=== PATIENT | male | born 1975 | race Caucasian/White ===

== ENCOUNTER 2019-03-10 13:52 | Emergency (ER) | payer BC ==
[~2019-03-10] VITALS: Wt 74.8 kg
[~2019-03-10 13:52] MED LIST: DAYPRO600 M1 PO; VICODIN 500 MG-1 TAB PO; VICODIN ES 7501 TAB PO
[2019-03-10] MEDS ORDERED: ANAPROX DS550 MG PO (14:23)
== END 2019-03-10 14:45 | disposition home or self-care (01) ==
LOC: ED 13:52
DX: M25.562 Pain in left knee (principal)

== ENCOUNTER 2020-07-01 21:54 | Emergency (ER) | payer OTHER ==
[~2020-07-01] VITALS: Wt 77.1 kg
[~2020-07-01 21:54] MED LIST changes: +ANAPROX DS550 MG PO
[2020-07-02] MEDS ORDERED: Motrin,Rufen800 MG PO (00:42)
== END 2020-07-02 00:49 | disposition home or self-care (01) ==
LOC: ED 21:54
DX: M79.672 Pain in left foot (principal)

== ENCOUNTER 2021-04-08 18:00 | Emergency (ER) | payer SELFPAY ==
[~2021-04-08] VITALS: Wt 77.1 kg
[~2021-04-08 18:00] MED LIST changes: +Motrin,Rufen800 MG PO
[2021-04-08] MEDS ORDERED: CEPHALEXIN500 M1 PO (21:02)
== END 2021-04-08 21:08 | disposition home or self-care (01) ==
LOC: ED 18:00
DX: S61.230A Puncture wound without foreign body of right index finger without damage to nail, initial encounter (principal); W18.39XA Other fall on same level, initial encounter; Y93.89 Activity, other specified; Y92.89 Other specified places as the place of occurrence of the external cause; Y99.8 Other external cause status

== ENCOUNTER 2023-03-25 12:48 | Emergency (ER) | payer SELFPAY ==
[~2023-03-25] VITALS: Ht 182.8 cm; Wt 74.8 kg
[~2023-03-25 12:48] MED LIST changes: +CEPHALEXIN500 M1 PO
[2023-03-25 16:14] LABS: BASO # 0.1 10*3/uL (0.0-0.1); BASO % 1.2 % (0.0-1.0); HEMATOCRIT 45.8 % (42.0-52.0); LYMPH % 30.7 % (27.0-41.0); MEAN CELL VOLUME 90.7 fl (80.0-94.0); MEAN CORPUSCULAR HGB 29.3 pg (27.0-31.0); MEAN CORPUSCULAR HGB CONC 32.3 g/dl (33.0-37.0); MEAN PLATELET VOLUME 9.3 fl (9.6-12.3); MONO # 0.7 10*3/uL (0.1-1.0); MONO % 10.2 % (3.0-9.0); NEUT # 3.7 10*3/uL (2.3-7.9); NEUT % 57.6 % (47.0-73.0); PLATELET COUNT AUTOMATED 316 10*3/uL (130-400); RED BLOOD COUNT 5.05 10*6/uL (4.50-5.90); RED CELL DISTRI WIDTH 12.4 % (0-14.5); WHITE BLOOD COUNT 6.5 10*3/uL (4.8-10.8)
[2023-03-25 16:36] LABS: ALKALINE PHOSPHATASE 93 U/L (46-116); BUN 10 mg/dl (9-23); CHLORIDE 104 mmol/L (98-107); POTASSIUM 4.7 mmol/L (3.4-5.1); SGPT/ALT 16 U/L (10-49)
== END 2023-03-25 18:45 | disposition home or self-care (01) ==
LOC: ED 12:48
PROVIDERS: Nurse Practitioner
DX: R53.1 Weakness (principal); Z20.822 Contact with and (suspected) exposure to COVID-19

== ENCOUNTER 2024-01-23 17:29 | Emergency (ER) | payer OTHER ==
[~2024-01-23] VITALS: Ht 182.8 cm; Wt 77.1 kg
[2024-01-23] MEDS ORDERED: FLUORESCEIN SODIUM 1 MG STRIP OPH ONE (18:40)
[2024-01-23] MEDS ORDERED: Ciprofloxacin Hydrochloride 0.3% OPHTHLAMIC BOTTLE OPH ONE (18:55)
== END 2024-01-23 19:15 | disposition home or self-care (01) ==
LOC: ED 17:29
DX: S05.01XA Injury of conjunctiva and corneal abrasion without foreign body, right eye, initial encounter (principal); X58.XXXA Exposure to other specified factors, initial encounter; Y93.89 Activity, other specified; Y92.89 Other specified places as the place of occurrence of the external cause; Y99.0 Civilian activity done for income or pay